=== PATIENT | female | born 2000 | race American Indian/Alaskan Native ===

== ENCOUNTER 2022-01-12 11:08 | Emergency (ER) | payer MEDICAID ==
--- NOTE | 2022-01-12 12:29 | Emergency Department Report ---
History of Present Illness - General Chief Complaint: Overdose Stated Complaint: OVERDOSE Time Seen by Provider: 01/12/22 12:18 Source: patient Mode of arrival: Ambulatory Limitations: No Limitations - History of Present Illness Initial Comments: Patient is 21 years old female with history of heart murmur and no other medical problems. Patient brought to the emergency room accompanied by her mother Samara Pete for evaluation of accidental overdose. Patient stated that she has a chest pain on and off and she took unknown amount of [id number] Midol to help with her chest pain. Mother at bedside and stated that she called her and told her that she is having some chest pain so she went ahead and took this medicine. Patient denied any suicidal ideation or suicidal attempt. She stated that she only took the medicine is just to help with her chest pain. Mother also at bedside and confirmed that she never had any history of depression or suicidal ideation. She also denied any recent history of distress. Patient denied any visual or auditory hallucination. No homicidal ideation. MD Complaint: accidental overdose -: Gradual Intent: other How Overdose Was Discovered: called family/friend Treatments Prior to Arrival: none - Related Data Allergies Allergy/AdvReac Type Severity Reaction Status Date / Time apple Allergy Anaphylaxis Verified 01/12/22 11:11 cat dander Allergy Anaphylaxis Verified 01/12/22 11:11 ED Review of Systems ROS: Stated complaint: OVERDOSE Other details as noted in HPI Comment: All other systems reviewed and negative Constitutional: denies: chills, fever Respiratory: denies: cough, shortness of breath, SOB with exertion, SOB at rest, wheezing Cardiovascular: chest pain, palpitations Gastrointestinal: denies: abdominal pain, nausea, vomiting, diarrhea, constip ation, hematemesis, melena Musculoskeletal: denies: back pain Neurological: denies: headache, weakness, numbness, paresthesias, confusion, abnormal gait Psychiatric: denies: anxiety, depression, auditory hallucinations, visual hallucinations, homicidal thoughts, suicidal thoughts ED Past Medical Hx - Past Medical History Previous Medical History?: No - Surgical History Past Surgical History?: No - Social History Smoking Status: Never Smoker Substance Use Type: None ED Physical Exam - General Limitations: No Limitations General appearance: alert, in no apparent distress - Head Head exam: Present: atraumatic, normocephalic, normal inspection - Eye Eye exam: Present: normal appearance - ENT ENT exam: Present: normal exam, normal orophraynx, mucous membranes moist - Neck Neck exam: Present: normal inspection, full ROM. Absent: tenderness, meningismus - Respiratory Respiratory exam: Present: normal lung sounds bilaterally - Cardiovascular Cardiovascular Exam: Present: tachycardia - GI/Abdominal GI/Abdominal exam: Present: soft, normal bowel sounds. Absent: distended, tenderness, guarding, rebound, rigid, organomegaly, mass, bruit, pulsatile mass, hernia - Extremities Exam Extremities exam: Present: normal inspection, full ROM, normal capillary refill. Absent: tenderness, pedal edema, joint swelling, calf tenderness - Back Exam Back exam: Present: normal inspection, full ROM. Absent: CVA tenderness (R), CVA tenderness (L) - Neurological Exam Neurological exam: Present: alert, oriented X3, CN II-XII intact, normal gait, reflexes normal. Absent: motor sensory deficit - Psychiatric Psychiatric exam: Present: normal mood. Absent: depressed, agitated, anxious, flat affect, manic, homicidal ideation, suicidal ideation - Skin Skin exam: Present: warm, intact, normal color ED Course Vital Signs 01/12/22 01/12/22 01/12/22 11:12 12:25 15:33 Temperature 98.0 F 98.1 F Pulse Rate 130 H 101 H Respiratory 21 16 Rate Blood Pressure 142/80 Blood Pressure 138/76 [Right] O2 Sat by Pulse 100 100 99 Oximetry - Consultations Consultation #1: 01/12/22 12:37 Poison control contacted and advised 60 g of activated charcoal, fluids and EKG every 2 hours. Acetaminophen level at 14:30. ED Medical Decision Making - Lab Data Result diagrams: 01/12/22 12:29 01/12/22 12:29 - EKG Data -: EKG Interpreted by Vt EKG shows normal: sinus rhythm Rate: tachycardia - EKG Data Interpretation: no acute changes - Medical Decision Making Patient is 21 years old female with history of heart murmur and no other medical problems. Patient brought to the emergency room accompanied by her mother Samara Pete for evaluation of accidental overdose. Patient stated that she has a chest pain on and off and she took unknown amount of [id number] M idol to help with her chest pain. Mother at bedside and stated that she called her and told her that she is having some chest pain so she went ahead and took this medicine. Patient denied any suicidal ideation or suicidal attempt. She stated that she only took the medicine is just to help with her chest pain. Mother also at bedside and confirmed that she never had any history of depression or suicidal ideation. She also denied any recent history of distress. Patient denied any visual or auditory hallucination. No homicidal ideation. Patient remained stable in the ER with stable vital signs. Labs reviewed and is unremarkable except for elevated acetaminophen level of 80 that decreased to 58 4 hours later. Patient counseled about taking MIDOL informed that it has acetaminophen. Patient advised to follow-up with her primary doctor in the next 2 to 3 days and to return to the ER if he develops any symptoms. Critical care attestation.: If time is entered above; I have spent that time in minutes in the direct care of this critically ill patient, excluding procedure time. ED Disposition Clinical Impression: Accidental drug overdose Disposition: 01 HOME / SELF CARE / HOMELESS Is pt being admited?: No Condition: Stable Instructions: Accidental Drug Poisoning, Adult Referrals: PRIMARY CARE, [Primary Care Provider] - 3-5 Days
[2022-01-12] MEDS ORDERED: SODIUM CHLORIDE 0.9% 1000 ML 1,000 ML IV ONE (12:36)
[2022-01-12] MEDS ORDERED: charcoal activated SOLUTION 25 GM/120 ML PO ONE (12:37)
[2022-01-12 13:19] LABS: Basophils % (Auto) 0.5 % (0.0-1.8); Eosinophils % (Auto) 0.1 % (0.0-4.3); Hematocrit 37.6 % (30.3-42.9); Hemoglobin 12.5 gm/dl (10.1-14.3); Lymphocytes # (Auto) 1.3 K/mm3 (1.2-5.4); Lymphocytes % (Auto) 22.5 % (13.4-35.0); Mean Corpuscular HGB Conc 33 % (30-34); Mean Corpuscular Volume 88 fl (79-97); Monocytes % (Auto) 6.7 % (0.0-7.3); Platelet Count 330 K/mm3 (140-440); Red Blood Count 4.26 M/mm3 (3.65-5.03)
[2022-01-12 13:20] LABS: Monocytes # (Auto) 0.4 K/mm3 (0.0-0.8)
[2022-01-12 13:24] LABS: Amphetamine Screen,Urine Negative; Benzodiazepines Screen,Urine Negative; Cocaine Screen,Urine Negative; Methadone Screen,Urine Negative; Opiate Screen,Urine Negative
[2022-01-12 13:36] LABS: Cannabinoid Screen,Urine Positive
[2022-01-12 13:36] LABS: Alanine Aminotransferase 17 units/L (7-56); Albumin 5.3 g/dL (3.9-5)
[2022-01-12 13:39] LABS: Blood Urea Nitrogen 5 mg/dL (7-17); Calcium 9.9 mg/dL (8.4-10.2); Hemolysis Index 21
[2022-01-12 13:40] LABS: BUN/Creatinine Ratio 8
[2022-01-12 13:41] LABS: Bilirubin,Direct < 0.2 mg/dL (0-0.2)
[2022-01-12 14:19] LABS: Bilirubin,Urine Negative (Negative); Blood,Urine Negative (Negative); Color,Urine Straw (Yellow)
[2022-01-12 14:20] LABS: Protein,Urine <15 mg/dL mg/dL (Negative)
[2022-01-12 14:21] LABS: Bacteria,Urine Negative /HPF (Negative); RBC,Urine < 1.0 /HPF (0.0-6.0); WBC,Urine < 1.0 /HPF (0.0-6.0)
[2022-01-12 17:21] VITALS: BP 138/78
--- NOTE | 2022-01-13 10:15 | Electrocardiograph Report ---
[facility] Test Date: 2022-01-12 Test Time: 11:17:11 Pat Name: ENA PALMER Department: Room: Gender: F [employer]: SCOOTER : 2000 Requested By: SWATI VERDUZCO Order Number: [id number] Reading MD: Huy Perez Measurements Intervals Phelps Rate: 108 P: 57 VA: 160 QRS: 64 QRSD: 68 T: -16 QT: 333 QTc: 447 Interpretive Statements Sinus tachycardia Left atrial enlargement No previous ECG available for comparison Electronically Signed On 01-13-2022 10:14:26 EDT by Huy Perez
== END 2022-01-12 17:21 | disposition home or self-care (01) ==
LOC: ED 11:08
DX: T39.1X1A Poisoning by 4-Aminophenol derivatives, accidental (unintentional), initial encounter (principal); Z91.018 Allergy to other foods; Z91.048 Other nonmedicinal substance allergy status; Y92.89 Other specified places as the place of occurrence of the external cause
CPT/HCPCS: 36415; 80048; 80076; 80307; 81001; 84703; 85025; 93005; 96360; 99284; J7030; 80320; G0480